=== PATIENT | male | born 1985 | race Caucasian/White ===

== ENCOUNTER 2017-07-13 13:35 | Emergency (ER) | payer OTHER, BC ==
[2017-07-13] MEDS ORDERED: Ciprofloxacin 0.3% Ophth Soln 2.5 ML Bottle ONE (14:30)
[2017-07-13] MEDS ORDERED: Tetracaine 1% 10 MG/ML 2 ML SDV ONE (14:30)
--- NOTE | 2017-07-13 14:40 | EDM.PDOC ---
ED HPI GENERAL MEDICAL PROBLEM - General Chief Complaint: Eye Problems Stated Complaint: chemical splash to eyes Time Seen by Provider: 07/13/17 14:00 Source of Information: Reports: Patient History Limitations: Reports: No Limitations - History of Present Illness INITIAL COMMENTS - FREE TEXT/NARRATIVE: This is a 31yo M working at [employer] and had [employer] solution splashed in the eyes. The solution is made up of 22% hydrogen peroxide and 1.4% Peroxy acetic acid but was diluted. He states he flushed his eyes out for 5 minutes prior to coming to the ER. Patient states his tenderness and pain is mainly in the left eye. 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 (see below) Other Treatments ASSISTANT DISTRICT ATTORNEY: eye wash stand at work x 5 minutes Eye Pain Score (Numeric/FACES): 7 - Related Data Allergies Allergy/AdvReac Type Severity Reaction Status Date / Time No Known Allergies Allergy Verified 07/13/17 14:18 Home Meds: Home Meds NK [No Known Home Meds] 07/13/17 [History] Past Medical History HEENT History: Reports: Hard of Hearing, Other (See Below) Other HEENT History: limited hearing in R ear Cardiovascular History: Reports: None Respiratory History: Reports: None Gastrointestinal History: Reports: None Genitourinary History: Reports: None Musculoskeletal History: Reports: Back Pain, Chronic Neurological History: Reports: Vertigo Psychiatric History: Reports: None Endocrine/Metabolic History: Reports: None Hematologic History: Reports: None Immunologic History: Reports: None Oncologic (Cancer) History: Reports: None Dermatologic History: Reports: None ED ROS GENERAL - Review of Systems Review Of Systems: ROS reveals no pertinent complaints other than HPI. ED EXAM GENERAL W FULL EYE - Physical Exam Exam: See Below Exam Limited By: No Limitations General Appearance: Alert, WD/WN, Mild Distress Eye Exam: Left Eye: Vision Changes (blurriness of the left eye), Bilateral Eye: Conjunctival Injection, EOMI, PERRL Visual Acuity (R) 20/: 20 Eyelids: Bilateral: Normal Appearance Conjunctiva & Sclera: Bilateral: Normal Appearance Cornea Exam: Bilateral: Normal Appearance Pupils: Normal Accommodation Pupillary Size: Bilateral: 4 mm Pupillary Reaction: Bilateral: Brisk Ears: Normal External Exam Nose: Normal Inspection Throat/Mouth: Normal Inspection Head: Atraumatic, Normocephalic Neck: Normal Inspection Respiratory/Chest: No Respiratory Distress, Lungs Clear, Normal Breath Sounds Cardiovascular: Normal Peripheral Pulses, Regular Rate, Rhythm Course - Vital Signs Last Recorded V/S: Last Vital Signs Temp 36.4 C 07/13/17 13:50 Pulse 88 07/13/17 13:50 Resp 20 07/13/17 13:50 BP 133/66 07/13/17 13:50 Pulse Ox 99 07/13/17 13:50 - Re-Assessments/Exams Free Text/Narrative Re-Assessment/Exam: Patient had eyes flushed for 10 more minutes and then pH checked and was normal 7.0. Departure - Departure Time of Disposition: 14:30 Disposition: Home, Self-Care 01 Condition: Good Clinical Impression: Chemical burn of eye - Discharge Information Referrals: Antonio Lopez MD [Primary Care Provider] - Forms: ED Department Discharge Additional Instructions: Cipro eye drops to [facility] every 4 hours for 5- 7 days. follow up with Opthamologist. - Problem List & Annotations (1) Chemical burn of eye SNOMED Code(s): 293590600 Code(s): T26.90XA - CORROSION OF UNSP EYE AND ADNEXA, PART UNSP, INIT ENCNTR Status: Acute Current Visit: Yes Annotation/Comment:: B/L left greater than right - Problem List Review Problem List Initiated/Reviewed/Updated: Yes - Assessment/Plan Plan: Discussed plan of care with sulky driver in [place] and patient will start with cipro eye drops q4 b/l and f/u with optometry for check. Counseled patient on f/u if any worsening visual symptoms or no resolution of blurriness of left eye. Discussed f/u with optometry stephanie. Patient agrees with plan and f/u.
== END 2017-07-13 14:13 | disposition home or self-care (01) ==
LOC: LB.ED 13:35
DX: T26.92XA Corrosion of left eye and adnexa, part unspecified, initial encounter (principal)
CPT/HCPCS: 99283; A9270

== ENCOUNTER 2025-05-19 09:23 | Day surgery (SDC) | payer OTHER ==
[2025-05-19] MEDS ORDERED: Propofol 500 MG/50 ML SDV ONE (12:15)
== END 2025-05-19 13:42 | disposition home or self-care (01) ==
LOC: LB.SDS 09:23
PROVIDERS: ATTEND Surgery
DX: K29.50 Unspecified chronic gastritis without bleeding (principal); K44.9 Diaphragmatic hernia without obstruction or gangrene; Z88.8 Allergy status to other drugs, medicaments and biological substances; Z91.09 Other allergy status, other than to drugs and biological substances; Z79.899 Other long term (current) drug therapy
CPT/HCPCS: 43239; 45380; J2704; J7030